=== PATIENT | female | born 1935 | race Caucasian/White ===

== ENCOUNTER 2022-06-02 21:56 | Outpatient (CLI) | payer MEDICARE, OTHER | END 2022-06-02 21:57 | disposition critical access hospital (66) | LOC: EMS 21:56 | DX: R47.81 Slurred speech (principal); R29.898 Other symptoms and signs involving the musculoskeletal system | CPT/HCPCS: A0425; A0429 ==

== ENCOUNTER 2022-06-02 22:16 | Emergency (ER) | payer MEDICARE, OTHER ==
[2022-06-02] MEDS ORDERED: SODIUM CHLORIDE 0.9% 1,000 ML IV STA (22:33)
--- NOTE | 2022-06-02 22:36 | ED Physician Documentation ---
PD HPI [facility]OCAL [facility]URO - Stated complaint Stated Complaint: R SIDE WEAKNESS/APHASIA - History obtained from History obtained from: Patient, EMS - History of Present Illness Timing - onset: Today Timing - duration: Minutes (10) Timing - details: Abrupt onset, Now resolved Severity of deficit: Moderate Weakness: Face, Arm, Hand, Leg, Foot, Right Numbness: No: Face, Arm, Hand, Leg, Foot, Right, Left Associated symptoms: Back pain. No: Headache, Nausea / vomiting, Seizure, Syncope, Fall, Head injury, Chest pain, Neck pain, Fever Contributing factors: negative: Anticoagulated, Vascular dz, Atrial fibrillation, Prosthetic heart valve Baseline status: positive: A&OX3, ambulatory, indep Similar symptoms before: Has not had sx before Recently seen: Not recently seen - Additional information Additional information: Previous well 87-year-old female was eating dinner with her daughter when she felt that she was unable to speak correctly and felt that she had weakness on the right side of her body. She noted that specifically she was unable to get out the words that she wanted to say. This all lasted approximately 10 minutes and resolved completely. She indicates that she feels that she may have had a similar episode earlier in the morning that resolved. The patient has had an issue with some pain in her low back and this has been going on over the past week. Her daughter indicates that she has been encouraging fluid but does not believe the patient has been able to drink adequate amount of fluid. Patient indicates that she has not otherwise been ill with the exception of this pain in her low back. She has had her back give out on her previously and this did not appear any different or more significant than prior episodes. There is no history of coronary artery disease or peripheral vascular disease. The patient does take antihypertensive including a diuretic. Review of Systems Constitutional: denies: Fever Eyes: denies: Decreased vision Ears: denies: Ear pain Nose: denies: Rhinorrhea / runny nose, Congestion Throat: denies: Sore throat Cardiac: denies: Chest pain / pressure, Palpitations Respiratory: denies: Dyspnea, Cough GI: denies: Abdominal Pain, Abdominal Swelling, Nausea, Vomiting, Constipation, Diarrhea : denies: Dysuria, Frequency Skin: denies: Rash Musculoskeletal: reports: Back pain. denies: Neck pain, Extremity pain Neurologic: reports: Focal weakness, Difficulty speaking. denies: Generalized weakness, Numbness, Headache, Head injury, LOC PD PAST MEDICAL HISTORY - Present Medications Home Medications: Ambulatory Orders Medication Instructions Recorded Confirmed Amoxicillin 500 mg PO ONCE PRN 06/02/22 06/02/22 Calcium Carbonate/Vitamin D3 500 mg PO DAILY 06/02/22 06/02/22 [Calcium 250-Vit D3 125 Tablet] Fluoride (Sodium) [Prevident 5000 1.1 % PO DAILY 06/02/22 06/02/22 [facility]] Fluticasone [Flonase] 50 mcg IN DAILY 06/02/22 06/02/22 Loratadine [Claritin] 10 mg PO DAILY 06/02/22 06/02/22 Multivitamin/Iron/Folic Acid 1 tab PO DAILY 06/02/22 06/02/22 [Centrum Women Tablet] Telmisartan/Hydrochlorothiazid 1 cap PO DAILY 06/02/22 06/02/22 [Micardis Hct 40-12.5 mg Tablet] - Allergies Allergies/Adverse Reactions: Allergies Allergy/AdvReac Type Severity Reaction Status Date / Time morphine Allergy Unknown Verified 06/02/22 22:29 PD ED PE NORMAL - Vitals Vital signs reviewed: Yes (wide pulse pressure) - General General: Alert and oriented X 3, No acute distress, Well developed/nourished - HEENT HEENT: Atraumatic, PERRL, EOMI, Other (dry mucous membranes) - Neck Neck: Supple, no meningeal sign, No bony TTP - Cardiac Cardiac: RRR, No murmur - Respiratory Respiratory: No respiratory distress, Clear bilaterally - Abdomen Abdomen: Soft, Non tender - Back Back: No CVA TTP, No spinal TTP - Derm Derm: Normal color, Warm and dry, No rash - Extremities Extremities: No deformity, No edema - Neuro Neuro: Alert and oriented X 3, volunteer services specialist 2-12 intact, No motor deficit, No sensory deficit, Normal speech Eye Opening: Spontaneous Motor: Obeys Commands Verbal: Oriented GCS Score: 15 - Psych Psych: Normal mood, Normal affect NIHSS - Time Time: 22:30 - Level of Consciousness Level of consciousness: (0) Alert, Keenly responsive LOC Questions: (0) Answers both Q's correct LOC Commands: (0) Performs both correctly - Gaze Best Gaze: (0) Normal - Visual Visual: (0) No loss - Facial Palsy Facial Palsy: (0) Normal, symmetrical movement - Motor Arms (both separate) Motor Arm (right): (0) No drift Motor Arm (left): (0) No drift - Motor Legs (both separate) Motor Leg (right): (0) No drift Motor Leg (left): (0) No drift - Limb Ataxia Limb Ataxia: (0) Absent - Sensory Sensory: (0) Normal - Best Language Best Language: (0) No aphasia - Dysarthria Dysarthria: (0) Normal - Extinction and Inattention (formally neg Extinction and inattention: (0) No abnormality - Total Score/Results Total Score/Result: 0 Results - Vitals Vitals: Vital Signs - 24 hr 06/02/22 06/02/22 06/03/22 22:30 22:35 01:29 Temperature 36.9 C 36.7 C Heart Rate 56 L 56 L 58 L Respiratory 15 14 16 Rate Blood Pressure 127/58 L 143/58 H 166/63 H O2 Saturation 99 99 98 06/03/22 01:54 Temperature 36.7 C Heart Rate 68 Respiratory 16 Rate Blood Pressure 170/65 H O2 Saturation 99 Oxygen O2 Source Room air - EKG (time done) 2227 Rate: Rate (enter#) (56) Rhythm: NSR [place]: Anterior hemiblock Intervals: RBBB Ischemia: Normal ST segments Compare to prior EKG: Old EKG unavailable Computer interpretation: Agree with computer - Labs Labs: Laboratory Tests 06/02/22 06/02/22 06/02/22 22:25 22:25 22:28 WBC 6.2 RBC 4.67 Hgb 13.6 Hct 39.7 MCV 85.0 MCH 29.1 MCHC 34.3 RDW 13.2 Plt Count 203 MPV 9.4 Neut # (Auto) 3.5 Lymph # (Auto) 1.9 [place] # (Auto) 0.7 Eos # (Auto) 0.1 Baso # (Auto) 0.1 Absolute Nucleated RBC 0.00 Nucleated RBC % 0.0 Sodium 128 L Potassium 3.4 L Chloride 94 L Carbon Dioxide 23 Anion Gap 11.0 BUN 13 Creatinine 0.7 Estimated GFR (MDRD) 79 L Glucose 109 H Calcium 9.5 Total Bilirubin 1.3 H AST 28 ALT 23 Alkaline Phosphatase 75 Total Protein 7.6 Albumin 4.2 Globulin 3.4 Albumin/Globulin Ratio 1.2 Lipase 51 Urine Color Urine Clarity Urine pH Ur Specific [place] Urine Protein Urine Glucose (UA) Urine Ketones Urine Occult Blood Urine Nitrite Urine Bilirubin Urine Urobilinogen Ur Leukocyte Esterase Ur Microscopic Review Urine Culture Comments Nasal Adenovirus (PCR) NOT DETECTED Nasal B. parapertussis DNA (PCR) NOT DETECTED Nasal Coronavir 229E PCR NOT DETECTED Nasal Coronavir HKU1 PCR NOT DETECTED Nasal Coronavir NL63 PCR NOT DETECTED Nasal Coronavir OC43 PCR NOT DETECTED Nasal Enterovir/Rhinovir PCR NOT DETECTED Nasal Influenza B PCR NOT DETECTED Nasal Influenza A PCR NOT DETECTED Nasal Parainfluen 1 PCR NOT DETECTED Nasal Parainfluen 2 PCR NOT DETECTED Nasal Parainfluen 3 PCR NOT DETECTED Nasal Parainfluen 4 PCR NOT DETECTED Nasal RSV (PCR) NOT DETECTED Nasal B.pertussis DNA PCR NOT DETECTED Nasal C.pneumoniae (PCR) NOT DETECTED [place] Human Metapneumo PCR NOT DETECTED Nasal M.pneumoniae (PCR) NOT DETECTED Nasal SARS-CoV-2 (PCR) NOT DETECTED 06/02/22 23:54 WBC RBC Hgb Hct MCV MCH MCHC RDW Plt Count MPV Neut # (Auto) Lymph # (Auto) [place] # (Auto) Eos # (Auto) Baso # (Auto) Absolute Nucleated RBC Nucleated RBC % Sodium Potassium Chloride Carbon Dioxide Anion Gap BUN Creatinine Estimated GFR (MDRD) Glucose Calcium Total Bilirubin AST ALT Alkaline Phosphatase Total Protein Albumin Globulin Albumin/Globulin Ratio Lipase Urine Color YELLOW Urine Clarity CLEAR Urine pH 6.5 Ur Specific [place] <=1.005 Urine Protein NEGATIVE Urine Glucose (UA) NEGATIVE Urine Ketones NEGATIVE Urine Occult Blood NEGATIVE Urine Nitrite NEGATIVE Urine Bilirubin NEGATIVE Urine Urobilinogen 0.2 (NORMAL) Ur Leukocyte Esterase NEGATIVE Ur Microscopic Review NOT INDICATED Urine Culture Comments NOT INDICATED Nasal Adenovirus (PCR) Nasal B. parapertussis DNA (PCR) Nasal Coronavir 229E PCR Nasal Coronavir HKU1 PCR Nasal Coronavir NL63 PCR Nasal Coronavir OC43 PCR Nasal Enterovir/Rhinovir PCR Nasal Influenza B PCR Nasal Influenza A PCR Nasal Parainfluen 1 PCR Nasal Parainfluen 2 PCR Nasal Parainfluen 3 PCR Nasal Parainfluen 4 PCR Nasal RSV (PCR) Nasal B.pertussis DNA PCR Nasal C.pneumoniae (PCR) [place] Human Metapneumo PCR Nasal M.pneumoniae (PCR) Nasal SARS-CoV-2 (PCR) - Rads (name of study) CTA head Radiology: Prelim report reviewed (Impression: No significant intracranial arterial abnormalities are seen. No intracranial hemorrhage is seen. No significant intracranial abnormality is seen. Age-appropriate brain parenchymal volume loss and chronic small vessel ischemic changes can be seen.), EMP read indepedently CTA neck Radiology: Prelim report reviewed (Impression: No hemodynamically significant stenosis can be seen within the arteries of the neck. Extensive thyroid nodules with calcification. Clinically appropriate, a scheduled thyroid ultrasound could be considered for further evaluation. ), Final report received (Mild patchy groundglass opacities can be seen within the visualized lung apices. Please consider pulmonary edema. Bony degenerative changes are seen throughout, which are worse involving the lower cervical spine. Est of stenosis included in the report of the study was calculated using NASCENT) Procedures - IVC sono (time) 2124 Bedside IVC sono: IVC measures (cm) (0.79), IVC collapsed c insp (cm) (complete), Dehydration (est >2 liter deficit) PD Medical Decision Making - ED course Complexity details: reviewed old records, reviewed results, re-evaluated patient, considered differential, d/w patient, d/w family Reviewed Lab Results: I reviewed the patient's complete blood count the hemoglobin hematocrit white blood cell count and platelets were all normal. Her electrolytes showed abnormality to the sodium and potassium which were both just below normal. Kidney and liver function were normal. ED course: 87 y/o female with a TIA. This is a first occurrence of this for this patient and she does not have a history of hypertension, vascular disease or arrhythmia. She is found to be significantly dehydrated on interrogation of the inferior vena cava with POCUS. She is administered 1-1/2 L of saline. She feels improved and is able to stand walk and care for herself as she normally would. She has a negative head and neck angiogram. She has a normal sinus rhythm and normal blood work and urinalysis. We will not have MRI for 2 days and we will not have echo for 2 days. I found it unhelpful to admit the patient to the hospital to gain these studies. I have asked patient to follow-up with her primary for outpatient work-up. The patient felt well and wanted to go home. I did not believe the patient had an embolic source for her TIA. Departure - Departure Disposition: 01 Home, Self Care Clinical Impression: TIA (transient ischemic attack), Dehydration Condition: Stable Instructions: ED Dehydration, ED Transient Ischemic Attack Follow-Up: SUZI ROBLEDO ARNP [Primary Care Provider] - Comments: Shelby, today we found that you have had a transient ischemic attack or a mini stroke. We were able to complete an angiogram of the vessels in your head and neck and these look normal. We did find that you are dehydrated and we provided IV hydration. There is further work-up to be done for this diagnosis to include MRI of the brain and echocardiogram of the heart. A follow-up with your primary care doctor in the coming week is indicated to schedule these tests as an outpatient. On our imaging we did find in your neck that there are multiple thyroid nodules and the usual follow-up with this is to get an ultrasound of the thyroid nodules. This can be done through your primary care doctor as well. If you are not already taking a baby aspirin take a baby aspirin every day. Discharge Date/Time: 06/03/22 01:54
[2022-06-02 22:43] LABS: BASOPHILS # (AUTO) 0.1 10^3/uL (0.0-0.1); BASOPHILS % (AUTO) 0.8 %; EOSINOPHILS # (AUTO) 0.1 10^3/uL (0.0-0.7); EOSINOPHILS % (AUTO) 1.3 %; HCT - HEMATOCRIT 39.7 % (37.0-47.0); HGB - HEMOGLOBIN 13.6 g/dL (12.0-16.0); LYMPHOCYTES # (AUTO) 1.9 10^3/uL (1.5-3.5); MEAN CORPUSCULAR HEMOGLOBIN 29.1 pg (27.0-31.0); MEAN CORPUSCULAR HGB CONC 34.3 g/dL (32.0-36.0); MEAN PLATELET VOLUME 9.4 fL (7.9-10.8); MONOCYTES # (AUTO) 0.7 10^3/uL (0.0-1.0); MONOCYTES % (AUTO) 11.6 %; NEUTROPHILS # (AUTO) 3.5 10^3/uL (1.5-6.6); PLT - PLATELET COUNT 203 10^3/uL (130-450); RED BLOOD COUNT 4.67 10^6/uL (4.20-5.40); RED CELL DISTRIBUTION WIDTH 13.2 % (12.0-15.0); WHITE BLOOD COUNT 6.2 x10^3/uL (4.8-10.8)
[2022-06-02 22:56] LABS: ALBUMIN 4.2 g/dL (3.2-5.5); ALBUMIN/GLOBULIN RATIO 1.2 (1.0-2.2); BILIRUBIN,TOTAL 1.3 mg/dL (0.2-1.0); CALCIUM 9.5 mg/dL (8.5-10.3); CREATININE 0.7 mg/dL (0.4-1.0); POTASSIUM 3.4 mmol/L (3.5-5.0); TOTAL PROTEIN 7.6 g/dL (6.7-8.2)
[2022-06-02] MEDS ORDERED: iohexoL-300 100 ML VIAL IVP ONE (23:34)
[2022-06-02 23:35] LABS: B. PARAPERTUSSIS- RESP PCR PAN NOT DETECTED; B. PERTUSSIS- RESP PCR PANEL NOT DETECTED; C. PNEUMONIAE- RESP PCR PANEL NOT DETECTED; CORONAVIRUS 229E-RESP PCR NOT DETECTED; CORONAVIRUS HKU1-RESP PCR NOT DETECTED; CORONAVIRUS NL63-RESP PCR NOT DETECTED; CORONAVIRUS OC43-RESP PCR NOT DETECTED; HUMAN METAPNEUMOVIRUS NOT DETECTED; INFLUENZA A- RESP PCR PANEL NOT DETECTED; INFLUENZA B - RESP PCR PANEL NOT DETECTED; M. PNEUMONIAE- RESP PCR PANEL NOT DETECTED; PARAINFLUENZA VIRUS 1 NOT DETECTED; PARAINFLUENZA VIRUS 2 NOT DETECTED; PARAINFLUENZA VIRUS 3 NOT DETECTED; PARAINFLUENZA VIRUS 4 NOT DETECTED; RHINOVIRUS/ENTEROVIRUS NOT DETECTED; RSV- RESP PCR PANEL NOT DETECTED; SARS-CoV-2 -RESP PCR PANEL NOT DETECTED
[2022-06-02] MEDS ORDERED: iohexoL-300 100 ML VIAL ONE (23:36)
--- NOTE | 2022-06-02 23:49 | CT Report ---
PROCEDURE: ANGIO HEAD W/WO INDICATIONS: R sided weakness, aphasia resolved CONTRAST: 100 ml TECHNIQUE: Precontrast 4.5 mm thick angled axial sections acquired from the foramen magnum to the vertex. Afte r the administration of intravenous contrast, 1 mm thick sections acquired through the [place] of [place] is. Postcontrast 4.5 mm thick sections then re-acquired from the foramen magnum to the vertex. 3-di mensional oqtllan-feyjctqct-ainbjmtnvq (MIP) and/or volume rendering reformats were acquired of the c entral intracranial vasculature. For radiation dose reduction, the following was used: automated ex posure control, adjustment of mA and/or kV according to patient size. COMPARISON: Correlation is made with the accompanying neck CT angiogram, 06/02/2022. FINDINGS: Image quality: There is streak artifact seen through the skull base. Anterior circulation: Intracranial internal carotid arteries are normal in size and flow. The flow within the paired anterior cerebral arteries is normal and symmetric. The flow within the middle cer ebral arteries is normal and symmetric. The anterior communicating artery is seen. No aneurysms are seen. Posterior circulation: Visualized portions of the vertebral arteries demonstrate normal caliber, and join to form a normal appearing basilar artery. Flow within the posterior cerebral arteries is norm al and symmetric. No aneurysms are seen. CSF spaces: Ventricles are normal in size and shape. Basal cisterns are patent. No extra-axial flu id collections. Brain: No midline shift. No intracranial bleeds or masses. Lau-white matter interface appears int act. Age-appropriate brain parenchymal volume loss and chronic small vessel ischemic change can be s een. Skull and face: Calvarium and facial bones appear intact, without suspicious lesions. Sinuses: Visualized sinuses and mastoids are clear. IMPRESSION: No significant intracranial arterial abnormalities are seen. No intracranial hemorrhage is seen. No significant intracranial abnormality is seen. Age-appropriate brain parenchymal volume loss and chronic small vessel ischemic change can be seen. Reviewed by: Adán Palmer MD on 06/02/2022 10:57 PM [facility] Approved by: Adán Palmer MD on 06/02/2022 10:57 PM [facility] Station ID: [id number]
--- NOTE | 2022-06-02 23:52 | CT Report ---
PROCEDURE: ANGIO NECK W INDICATIONS: right sided weakness, aphasia resolved CONTRAST: 100 ml TECHNIQUE: After the administration of intravenous contrast, 1.5 mm axial sections acquired from the aortic arch to the [place]. Coronal 3-D maximum intensity projection (MIP) and/or volume rendering ref ormats were then performed. For radiation dose reduction, the following was used: automated exposur e control, adjustment of mA and/or kV according to patient size. COMPARISON: Correlation is made with the accompanying head CT angiogram, 06/02/2022. FINDINGS: Image quality: Excellent. Carotid system: The great vessels demonstrate a conventional anatomy as they arise from the aortic a rch. The origins of the common carotid arteries appear patent. The common carotid arteries demonstr ate normal calibers and courses. The bifurcation regions appear normal bilaterally. The internal ca rotid arteries demonstrate normal caliber and course. Posterior circulation: The origins of the vertebral arteries appear patent. The more superior porti ons of the vertebral arteries demonstrate normal course and caliber. They join to form a normal appe aring basilar artery. Soft tissues: Visualized neck soft tissues demonstrate no suspicious abnormalities. Extensive thyro id nodules are seen with areas of larger calcification. The largest solitary nodule is seen on the le ft measuring up to 2.4 cm, as on series 4 image 105. Mild patchy groundglass opacities can be seen wi thin the lung apices. Bones: No suspicious bony lesions. Visualized cervical spine appears normally aligned. Extensive cervical spine degenerative changes are seen, including involving the C1-C2 interface anteriorly. The re is moderate to severe disc space narrowing seen at C5-C6 and C6-C7. Degenerative changes are seen throughout the visualized upper thoracic spine. IMPRESSION: No hemodynamically significant stenosis can be seen within the arteries of the neck. Extensive thyroid nodules with calcification. Clinically appropriate, a scheduled thyroid ultrasound could be considered for further evaluation. Mild patchy ground glass opacities can be seen within the visualized lung apices. Please consider pul monary edema. Bony degenerative changes are seen throughout, which are worst involving the lower cervical spine. The estimate of stenosis included in the report of the imaging study was calculated using the NASCET method Reviewed by: Adán Palmer MD on 06/02/2022 11:00 PM [facility] Approved by: Adán Palmer MD on 06/02/2022 11:00 PM [facility] Station ID: [id number]
[2022-06-03 00:02] LABS: BILIRUBIN,URINE NEGATIVE (NEGATIVE); GLUCOSE, URINE (UA) NEGATIVE (NEGATIVE); KETONES,URINE (UA) NEGATIVE (NEGATIVE); LEUKOCYTE ESTERASE, URINE NEGATIVE (NEGATIVE); NITRITE,URINE NEGATIVE (NEGATIVE); OCCULT BLOOD,URINE NEGATIVE (NEGATIVE); PH,URINE 6.5 PH (5.0-7.5); PROTEIN,URINE NEGATIVE (NEGATIVE); UROBILINOGEN,URINE 0.2 (NORMAL) E.U./dL (NORMAL)
[2022-06-03 00:07] LABS: CLARITY,URINE CLEAR (CLEAR)
[2022-06-03] MEDS ORDERED: SODIUM CHLORIDE 0.9% 500 ML IV STA (00:27)
[2022-06-03] MEDS ORDERED: ASPIRIN CHEW 81 MG TABLET PO STA (01:33)
[2022-06-03] MEDS ORDERED: ASPIRIN CHEW 81 MG TABLET ONE (01:34)
[2022-06-03 01:56] VITALS: BP 170/65
== END 2022-06-03 01:54 | disposition home or self-care (01) ==
LOC: EDUNIT# → ED 22:16
DX: G45.9 Transient cerebral ischemic attack, unspecified (principal); E86.0 Dehydration; Z20.822 Contact with and (suspected) exposure to COVID-19
CPT/HCPCS: 36415; 70496; 70498; 80053; 81003; 83690; 85025; 87633; 93005; 96360; 96361; 99284; A9270; Q9967; 81001; 87086

== ENCOUNTER 2022-06-03 16:25 | Outpatient (CLI) | payer MEDICARE, OTHER | END 2022-06-03 16:26 | disposition EMS.NT | LOC: EMS 16:25 | DX: M54.6 Pain in thoracic spine (principal) ==

== ENCOUNTER 2024-02-20 17:13 | Outpatient (CLI) | payer MEDICARE, OTHER | END 2024-02-20 17:14 | disposition critical access hospital (66) | LOC: EMS 17:13 | DX: R07.81 Pleurodynia (principal); W01.0XXA Fall on same level from slipping, tripping and stumbling without subsequent striking against object, initial encounter; Y92.008 Other place in unspecified non-institutional (private) residence as the place of occurrence of the external cause | CPT/HCPCS: A0425; A0429 ==

== ENCOUNTER 2024-02-20 17:38 | Emergency (ER) | payer MEDICARE, OTHER ==
--- NOTE | 2024-02-20 18:13 | XRAY Report ---
PROCEDURE: Ribs w/PA Chest 3+V LT INDICATIONS: fall/L ribs pain TECHNIQUE: 2 views of the ribs were acquired, along with a single view chest. COMPARISON: None. FINDINGS: Surgical changes and devices: Right upper quadrant surgical clips Bones and chest wall: Diffuse osseous demineralization, which limits assessment of fractures and fra cture acuity. Acute, minimally displaced fracture of the left 6th lateral rib. No suspicious bony le sions. Overlying soft tissues appear unremarkable. Lungs and pleura: No pleural effusions or pneumothorax. Lungs appear clear. Mediastinum: Aortic arch calcifications. Mediastinal contours appear normal. Heart size is normal. IMPRESSION: Acute, minimally displaced left 6th lateral rib fracture. Additional fractures are possible, but eval uation is limited due to diffuse osseous demineralization. No pneumothorax or pleural effusion at thi s time. Reviewed by: Bony Cantrell MD on 02/20/2024 6:12 PM PDT Approved by: Bony Cantrell MD on 02/20/2024 6:12 PM PDT Station ID: [id number]
--- NOTE | 2024-02-20 18:42 | CT Report ---
PROCEDURE: Head WO INDICATIONS: fall/head inj TECHNIQUE: Noncontrast 4.5 mm thick angled axial sections acquired from the foramen magnum to the vertex. For r adiation dose reduction, the following was used: automated exposure control, adjustment of mA and/or kV according to patient size. COMPARISON: CTA head and neck angiogram 06/02/2022 FINDINGS: Image quality: Excellent. CSF spaces: Basal cisterns are patent. No extra-axial fluid collections. Ventricles are normal in size and shape. Brain: No midline shift. No intracranial masses or hemorrhage. Lau-white matter interface is norm al. Moderate periventricular patchy hypoattenuation, likely secondary to chronic microvascular ischem ic disease. Mild cerebral volume loss with concordant and consecutive ventricular dilatation. Intracr anial atherosclerotic calcifications. Skull and face: Calvarium and visualized facial bones are intact, without suspicious lesions. Sinuses: Visualized sinuses and mastoids are clear. IMPRESSION: No acute intracranial pathology. Reviewed by: Bony Cantrell MD on 02/20/2024 6:41 PM PDT Approved by: Bony Cantrell MD on 02/20/2024 6:41 PM PDT Station ID: [id number]
--- NOTE | 2024-02-20 18:57 | CT Report ---
PROCEDURE: Maxillofacial WO INDICATIONS: fall/facial inj TECHNIQUE: Noncontrast 1.5 mm thick axial images acquired from the mandible through the frontal sinuses, with co alexis and sagittal reformatting. For radiation dose reduction, the following was used: automated ex posure control, adjustment of mA and/or kV according to patient size. COMPARISON: None. FINDINGS: Image quality: Diagnostic. Bones and teeth: Orbital solares are intact. Sinus solares show no fracture or deformity. Nasal bones and septum are intact. Visualized portions of the mandible demonstrate no fractures or subluxation. Zygomatic arches are intact. Pterygoid plates are intact. Visualized portions of the skull base an d auditory canals are intact. Sinuses the mild mucosal thickening of the maxillary sinuses.. Mastoid air cells are aerated. Soft tissues: No edema, masses, or fluid collections. No enlarged lymph nodes. No soft tissue lace rations or debris. Vascular: Visualized vascular structures appear normal in the absence of contrast. Bony vascular fo ramina and canals are intact. IMPRESSION: No acute craniofacial abnormality. Reviewed by: Nyla Larkin MD, PhD on 02/20/2024 6:55 PM PDT Approved by: Nyla Larkin MD, PhD on 02/20/2024 6:55 PM PDT Station ID: [id number]
--- NOTE | 2024-02-20 18:58 | ED Physician Documentation ---
History of Present Illness - Stated complaint Stated Complaint: GLF/HEAD LAC - Chief complaint Chief Complaint: General - History obtained from History obtained from: Patient, EMS - Additonal information Additional information: The patient comes to the emergency department chief complaint of ground-level fall. She states that she tripped over her right foot walking shoe and fell onto her left side, striking her left ribs and face on the carpeted floor. She did not lose consciousness. She denies any neck pain. She has some left-sided rib pain. She is not anticoagulated. She denies any hip pain or extremity pain. No other complaints at this time. PD PAST MEDICAL HISTORY - Present Medications Home Medications: Ambulatory Orders Medication Instructions Recorded Confirmed Amoxicillin 500 mg PO ONCE PRN 06/02/22 02/20/24 Calcium Carbonate/Vitamin D3 500 mg PO DAILY 06/02/22 02/20/24 [Calcium 250-Vit D3 125 Tablet] Fluoride (Sodium) [Prevident 5000 1.1 % PO DAILY 06/02/22 02/20/24 Ortho Defense] Fluticasone [Flonase] 50 mcg IN DAILY 06/02/22 02/20/24 Loratadine [Claritin] 10 mg PO DAILY 06/02/22 02/20/24 HYDROcod/ACETAM 5/325 [Eighty Four 5/325] 1 - 2 tablet PO Q6H PRN #14 tablet 02/20/24 Levothyroxine Sodium [Synthroid] 150 mcg PO DAILY 02/20/24 02/20/24 Lidocaine Patch 5% [Lidoderm Patch] 1 patch TOP UD PRN 02/20/24 02/20/24 Rosuvastatin Calcium 20 mg PO HS 02/20/24 02/20/24 Telmisartan/Hydrochlorothiazid 1 cap PO DAILY 02/20/24 02/20/24 [Micardis Hct 40-12.5 mg Tablet] Tizanidine HCl [Zanaflex] 2 mg PO Q6HR PRN 02/20/24 02/20/24 - Allergies Allergies/Adverse Reactions: Allergies Allergy/AdvReac Type Severity Reaction Status Date / Time morphine Allergy Unknown Verified 02/20/24 17:57 - Social History Does the pt smoke?: No Smoking Status: Never smoker Does the pt drink ETOH?: No Does the pt have substance abuse?: No - Immunizations Immunizations are current?: Yes - POLST Patient has POLST: No PD ED PE NORMAL - Vitals Vital signs reviewed: Yes - General General: Alert and oriented X 3, No acute distress, Well developed/nourished - HEENT HEENT: PERRL, EOMI, Moist mucous membranes, Other (Abrasion over left forehead with contusion over left maxillary area and moderate edema. No other head or facial trauma.) - Neck Neck: Supple, no meningeal sign, No bony TTP - Cardiac Cardiac: RRR, No murmur - Respiratory Respiratory: No respiratory distress, Clear bilaterally - Abdomen Abdomen: Soft, Non tender, Non distended - Back Back: No spinal TTP - Derm Derm: Normal color, Warm and dry, No rash - Extremities Extremities: No deformity, No edema - Neuro Neuro: lookback coordinator 2-12 intact, No motor deficit, No sensory deficit, Normal speech, Other (Alert, appropriate) - Psych Psych: Normal mood, Normal affect - Free text exam Free text exam: Tenderness to palpation over left lateral rib cage. No crepitus or step-off. Results - Vitals Vitals: Vital Signs - 24 hr 02/20/24 17:49 Temperature 36.2 C L Heart Rate 64 Respiratory 16 Rate Blood Pressure 134/72 H O2 Saturation 98 Oxygen O2 Source Room air - Rads (name of study) X-ray left ribs Relevant Findings:: Final report received, See rad report (6th rib fracture) Head CT Relevant Findings:: Final report received, See rad report (Negative for acute findings) Maxillofacial CT Relevant Findings:: EMP independent interpretation of test (Soft tissue swelling, otherwise no acute findings) PD Medical Decision Making - ED course Complexity details: reviewed results, re-evaluated patient, considered differential, d/w patient, d/w family ED course: The patient was worked up with x-rays of the left ribs and chest, as well as CT scan of the head and face. She was found to have a 6th rib fracture but otherwise negative workup. The patient was stable for discharge home. We have discussed home management of symptoms as well as usual indications for return. Departure - Departure Disposition: 01 Home, Self Care Clinical Impression: Rib fracture Qualifiers: Encounter type: initial encounter Rib fracture type: single rib Fracture type: closed Laterality: left Qualified Code(s): S22.32XA - Fracture of one rib, left side, initial encounter for closed fracture Closed head injury Qualifiers: Encounter type: initial encounter Qualified Code(s): S09.90XA - Unspecified injury of head, initial encounter Condition: Stable Instructions: ED Fx Rib Prescriptions: HYDROcod/ACETAM 5/325 [Eighty Four 5/325] 1 - 2 tablet PO Q6H PRN #14 tablet PRN Reason: Pain Comments: Your CT scans look good. Your x-rays show a fracture of your left sixth rib. This will heal on its own given time but like any broken bone, it will take 4 to 6 weeks. You will probably have some pain especially for the first couple of weeks of this process. You may take ibuprofen and Tylenol for this or you can substitute the stronger prescribed pain medication for the Tylenol if you wish. Be sure you are taking at least 10 very deep breaths every hour to prevent development of pneumonia. Your prescription has been electronically transmitted to the [facility] pharmacy in [place], your pharmacy of choice on record. Please pick this up tomorrow morning.
[2024-02-20 19:28] VITALS: BP 151/74; O2SAT 99
[2024-02-20] MEDS: HYDROcod/ACETAM 5/325 MG TABLET PO STA (19:28)
== END 2024-02-20 19:30 | disposition home or self-care (01) ==
LOC: EDUNIT# → ED 17:38
DX: S22.32XA Fracture of one rib, left side, initial encounter for closed fracture (principal); S00.83XA Contusion of other part of head, initial encounter; S00.81XA Abrasion of other part of head, initial encounter; W18.30XA Fall on same level, unspecified, initial encounter
CPT/HCPCS: 70450; 70486; 71101; 99284; A9270

== ENCOUNTER 2024-02-21 03:04 | Outpatient (CLI) | payer MEDICARE, OTHER | END 2024-02-21 03:05 | disposition EMS.NT | LOC: EMS 03:04 | DX: R41.82 Altered mental status, unspecified (principal) ==